=== PATIENT | female | born 1985 | race Caucasian/White ===

== ENCOUNTER 2021-10-28 08:55 | Outpatient (CLI) | payer BC ==
[2021-10-29 01:29] LABS: SARS-CoV-2 PCR by NAA Not Detected (NotDetected)
== END 2021-10-28 08:56 | disposition home or self-care (01) ==
LOC: CSHLAB 08:55
PROVIDERS: ATTEND Obstetrics & Gynecology
DX: Z20.822 Contact with and (suspected) exposure to COVID-19 (principal)
CPT/HCPCS: U0003; U0005

== ENCOUNTER 2021-11-01 06:50 | Inpatient (IN) | payer BC ==
[2021-11-01] MEDS ORDERED: Lactated Ringer's 1,000 ML IV SCH (07:16)
[2021-11-01] MEDS ORDERED: Famotidine/PF 20 mg/2ml Vial SLOW IVP PRN (07:16)
[2021-11-01] MEDS ORDERED: Promethazine HCl 25 MG/ML VIAL IM PRN ×3 (07:16→11:13)
[2021-11-01] MEDS ORDERED: Ondansetron PF 4 MG/2 ML Vial IVP PRN ×3 (07:16→11:13)
[2021-11-01] MEDS ORDERED: hydrALAZINE 20 MG/ML VIAL SLOW IVP PRN ×2 (07:16→11:13)
[2021-11-01] MEDS ORDERED: Bicitra 30 ML UDCUP PO PRN (07:16)
[2021-11-01] MEDS ORDERED: ceFAZolin 2 GM/Dextrose 50 ML 2 GM in Premix Bag 1 BAG IVPB SCH (07:16)
[2021-11-01 07:36] VITALS: BMI 37.4
[2021-11-01 08:37] LABS: Hemoglobin 11.6 g/dL (12.0-15.5); Mean Corpuscular HGB CONC 33.6 g/dL (32.0-36.0); Mean Corpuscular Volume 89.1 fl (81.6-98.3); Mean Platelet Volume 10.8 fl (7.4-10.4); Platelet Count 281 10x3/uL (150-450); RBC Distribution Width 14.6 % (11.5-14.5); Red Blood Cell (RBC) Count 3.87 10x6/uL (3.90-5.03); White Blood Cell (WBC) Count 4.1 10x3/uL (3.5-10.5)
[2021-11-01] MEDS ORDERED: Morphine PF 10 MG/10 ML VIAL ONE (08:42)
[2021-11-01] MEDS ORDERED: PHENYLEPHRINE-NS 100 MCG/ML 10 ML SYRINGE ONE ×2 (08:42→09:19)
[2021-11-01] MEDS ORDERED: Oxytocin 10 UNITS/ML VIAL ONE (08:42)
[2021-11-01] MEDS ORDERED: Ondansetron PF 4 MG/2 ML Vial ONE (08:43)
[2021-11-01] MEDS ORDERED: Dexamethasone 4 mg/ml Vial ONE (08:43)
[2021-11-01] MEDS ORDERED: ePHEDrine Sulfate 50 MG/10 ML VIAL ONE (08:44)
[2021-11-01 09:08] LABS: Syphilis Antibody Nonreactive (Nonreactive); Syphilis Antibody Index 0.05 S/CO (<1.00 Non-Reactive)
[2021-11-01] MEDS ORDERED: Metoclopramide HCl 10 MG/2 ML VIAL ONE (09:29)
[2021-11-01] MEDS ORDERED: Ketorolac Tromethamine 30 MG/ML VIAL ONE (09:45)
[2021-11-01 09:52] LABS: Hep B Surf Ag Non-Reactive S/CO (NonReactive)
[2021-11-01 09:55] LABS: HBSAg Index 0.16 S/CO (0-0.99)
[2021-11-01] MEDS ORDERED: Ondansetron HCl/PF 4 MG/2 ML Vial IVP PRN (10:00)
[2021-11-01] MEDS ORDERED: Meperidine HCl/PF 25 MG/ML VIAL SLOW IVP PRN (10:00)
[2021-11-01] MEDS ORDERED: Communication Order-Pharmacy FS SCH (10:00)
[2021-11-01] MEDS ORDERED: diphenhydrAMINE 50 MG/ML VIAL IVP PRN (10:00)
[2021-11-01] MEDS ORDERED: Promethazine HCl 25 MG SUPP PR PRN (10:00)
[2021-11-01] MEDS ORDERED: Fentanyl 100 MCG/2 ML VIAL SLOW IVP PRN (10:00)
[2021-11-01] MEDS ORDERED: Naloxone HCl 0.4 mg/ml Vial IVP PRN ×2 (10:00)
[2021-11-01] MEDS ORDERED: Hydrocerin (Eucerin) Cream 120 gm Jar TOP PRN (10:00)
[2021-11-01] MEDS ORDERED: Ketorolac Tromethamine 30 MG/ML VIAL IVP SCH (10:00)
[2021-11-01] MEDS ORDERED: Naloxone HCl 0.4 mg/ml Vial IV PRN (10:00)
[2021-11-01] MEDS ORDERED: NS w/ Oxytocin 30 units 500 ML ONE (10:38)
[2021-11-01] MEDS ORDERED: ceFAZolin 2 GM/Dextrose 50 ML IVPB ONE (10:38)
[2021-11-01] MEDS ORDERED: NS w/ Oxytocin 30 units 500 ML IV SCH (10:45)
[2021-11-01] MEDS ORDERED: Lanolin Ointment 7 GM TUBE TOP PRN (11:13)
[2021-11-01] MEDS ORDERED: Bisacodyl 10 MG SUPP PR PRN (11:13)
[2021-11-01] MEDS ORDERED: Boostrix 0.5 ML (Tdap) VIAL IM ONE (11:13)
[2021-11-01] MEDS ORDERED: Acetaminophen 325 MG TAB PO PRN (11:13)
[2021-11-01] MEDS ORDERED: Prenatal Vitamin 1 TAB PO SCH (11:30)
[2021-11-01] MEDS: Ketorolac Tromethamine 30 MG/ML VIAL IVP PRN ×3 (12:13→23:16)
[2021-11-01] MEDS: Ferrous Sulfate 325 MG TAB PO SCH (21:45)
[2021-11-01] MEDS ORDERED: Zolpidem Tartrate 5 MG TAB PO PRN (22:00)
[2021-11-01] MEDS: Docusate 100 MG CAP PO SCH (23:16)
[2021-11-01] MEDS: diphenhydrAMINE 25 MG CAP PO PRN (23:37)
[2021-11-02 03:40] LABS: Hemoglobin 10.7 g/dL (12.0-15.5); Mean Corpuscular HGB CONC 33.3 g/dL (32.0-36.0); Mean Corpuscular Hemoglobin 30.2 pg (27.0-33.0); Mean Corpuscular Volume 90.7 fl (81.6-98.3); Mean Platelet Volume 10.6 fl (7.4-10.4); Platelet Count 252 10x3/uL (150-450); RBC Distribution Width 14.6 % (11.5-14.5); Red Blood Cell (RBC) Count 3.54 10x6/uL (3.90-5.03); White Blood Cell (WBC) Count 6.4 10x3/uL (3.5-10.5)
[2021-11-02] MEDS: Ketorolac Tromethamine 30 MG/ML VIAL IVP PRN (05:50)
[2021-11-02] MEDS: Ferrous Sulfate 325 MG TAB PO SCH ×2 (08:53→21:29)
[2021-11-02] MEDS: Prenatal Vitamin 1 TAB PO SCH (09:23)
[2021-11-02] MEDS: Simethicone Chewable 80 MG TAB PO PRN ×3 (09:23→21:40)
[2021-11-02] MEDS: Docusate 100 MG CAP PO SCH ×2 (09:23→21:40)
[2021-11-02] MEDS: HYDROcodone/Acetaminophen 5/325 mg Tablet PO PRN ×4 (09:26→21:41)
[2021-11-02] MEDS: Ibuprofen 800 MG TAB PO SCH ×2 (13:47→21:40)
[2021-11-02] MEDS: diphenhydrAMINE 25 MG CAP PO PRN (13:50)
[2021-11-03] MEDS: HYDROcodone/Acetaminophen 5/325 mg Tablet PO PRN ×3 (01:58→12:48)
[2021-11-03] MEDS: Simethicone Chewable 80 MG TAB PO PRN ×2 (01:58→12:53)
[2021-11-03] MEDS: Ibuprofen 800 MG TAB PO SCH ×3 (05:58→21:43)
[2021-11-03] MEDS: Prenatal Vitamin 1 TAB PO SCH (08:47)
[2021-11-03] MEDS: Ferrous Sulfate 325 MG TAB PO SCH ×2 (08:47→21:42)
[2021-11-03] MEDS: Docusate 100 MG CAP PO SCH ×2 (08:47→21:44)
[2021-11-04] MEDS: HYDROcodone/Acetaminophen 5/325 mg Tablet PO PRN (03:43)
[2021-11-04] MEDS: Ibuprofen 800 MG TAB PO SCH (05:47)
[2021-11-04] MEDS: Ferrous Sulfate 325 MG TAB PO SCH (07:05)
[2021-11-04] MEDS: Docusate 100 MG CAP PO SCH (08:11)
[2021-11-04] MEDS: Prenatal Vitamin 1 TAB PO SCH (08:12)
[2021-11-04 08:29] VITALS: BP 125/82; TEMP 97.9
[2021-11-04] MEDS: Simethicone Chewable 80 MG TAB PO PRN (11:54)
== END 2021-11-04 12:20 | disposition home or self-care (01) | DRG 788 ==
LOC: CSHLD 06:50 → CSHPP 12:58
PROVIDERS: ADMIT Student in an Organized Health Care Education/Training Program; ATTEND Student in an Organized Health Care Education/Training Program
PROC: 10D00Z1 Extraction of Products of Conception, Low, Open Approach (ICD-10-PCS; principal; 2021-11-01)
DX: O34.211 Maternal care for low transverse scar from previous cesarean delivery (principal); Z3A.39 39 weeks gestation of pregnancy; Z37.0 Single live birth
CPT/HCPCS: 36415; 51702; 85027; 86780; 86850; 86900; 86901; 87340; J0690; J1100; J1200; J1885; J2274; J2405; J2590; J2765; S0028